=== PATIENT | female | born 1980 | race Caucasian/White ===

== ENCOUNTER 2025-06-04 22:37 | Emergency (ER) | payer OTHER ==
[~2025-06-04] VITALS: Ht 160 cm; Wt 52.0 kg
[2025-06-04 22:47] VITALS: BP 126/65
== END 2025-06-04 22:48 | disposition home or self-care (01) ==
LOC: ED 22:37
DX: F15.90 Other stimulant use, unspecified, uncomplicated (principal); Z02.89 Encounter for other administrative examinations
CPT/HCPCS: 99283

== ENCOUNTER 2025-08-09 13:45 | Emergency (ER) | payer OTHER ==
[~2025-08-09] VITALS: Ht 160 cm; Wt 51.0 kg
[2025-08-09 14:24] LABS: BASOPHILS 0.7 % (0.1-1.2); EOSINOPHILS 1.7 % (0.7-5.8); LYMPHOCYTES 40.8 % (19.3-51.7); MCH 15.9 PG (25.6-32.2); MCHC 26.8 g/dL (32.2-35.5); MCV 59.5 fL (79.4-94.8); MONOCYTES 8.0 % (4.7-12.5); NEUTROPHILS 48.8 % (34.0-71.1); RBC 4.02 M/uL (3.93-5.22)
[2025-08-09] MEDS ORDERED: FERROUS SULFAT325 M1 PO (14:33)
[2025-08-09] MEDS ORDERED: B12 ACTIVE1000 MCG SL (14:35)
[2025-08-09 14:43] LABS: GLOMERULAR FILTRATION RATE,EST 114.0 mL/min (>60); UREA NITROGEN 17.0 mg/dL (7-18)
[2025-08-09 16:53] LABS: ABO A; RH POSITIVE
[2025-08-09 16:54] LABS: ABO A; RH POSITIVE
[2025-08-09 16:54] LABS: ANTIBODY SCREEN NEGATIVE; IS CROSSMATCH COMPATIBLE
[2025-08-09] MEDS ORDERED: ACETAMINOPHEN 500 MG TAB PO ONE (20:15)
== END 2025-08-09 22:30 | disposition home or self-care (01) ==
LOC: ED 13:45
PROVIDERS: Emergency Medicine
DX: D64.9 Anemia, unspecified (principal); Z79.899 Other long term (current) drug therapy; Z88.8 Allergy status to other drugs, medicaments and biological substances; Z88.1 Allergy status to other antibiotic agents
CPT/HCPCS: 36415; 36430; 80048; 85025; 85060; 86850; 86900; 86901; 86922; 99284-25; A9270; P9016